=== PATIENT | female | born 1945 | race Caucasian/White ===

== ENCOUNTER 2020-06-24 01:03 | Inpatient (IN) | payer SELFPAY ==
[~2020-06-24] VITALS: Ht 144.8 cm; Wt 36.7 kg
[2020-06-24 01:21] VITALS: Ht 144.8 cm; Wt 36.7 kg
--- NOTE | 2020-06-24 01:37 | NUR ---
PT CAME TO ED FOR C/O EPIGASTRIC PAIN 08/23 X 2 DAYS. PT STATES IT WAS A SUDDEN ONSET AND DOES NOT RADIATE. PT IS AAOX4, NAD NOTED. PT IN GOWN AND ON CM, VSS. MD KING PERFORMED MSE AND DEISY EMT AT [facility] EFOR EKG AT THIS TIME. PT STATES SHE HAS HX OF DM AND HTN. LUNGS CLEAR BILAT, E/U BREATHING. WILL CONTINUE TO MONITOR PT AT THIS TIME.
--- NOTE | 2020-06-24 01:58 | NUR ---
PT BEING TAKEN VIA GURNEY TO CT SCAN AT THIS TIME.
[2020-06-24 02:26] LABS: CALCIUM 8.4 mg/dL (8.5-10.1); CARBON DIOXIDE 28.2 mmol/L (21-32); CHLORIDE SERUM 102 mmol/L (98-107); CREATININE SERUM 0.7 mg/dL (0.6-1.0); GLUCOSE SERUM 119 mg/dL (74-106); POTASSIUM SERUM 3.8 mmol/L (3.5-5.1); SODIUM SERUM 138 mmol/L (136-145)
[2020-06-24 02:31] LABS: ALBUMIN 3.4 g/dL (3.4-5.0); ALKALINE PHOSPHATASE 71 U/L (46-116); ALT/SGPT 11 U/L (14-59); AST/SGOT 20 U/L (15-37); BILIRUBIN TOTAL 0.44 mg/dL (0.20-1.00); LIPASE 336 IU/L (73-393); TOTAL PROTEIN, SERUM 6.8 g/dL (6.4-8.2)
[2020-06-24 02:37] LABS: BASOPHIL % 0.3 % (0-2); PLATELET COUNT 166 x10^3mcL (130-400)
--- NOTE | 2020-06-24 02:47 | NUR ---
PT AMBULATED TO THE RESTROOM WITH STEADY GAIT. ABLE TO OBTAIN PT FROM URINE AT THIS TIME.
[2020-06-24 02:49] LABS: RED CELL DISTRIBUTION WIDTH 14.9 % (11.5-14.5)
[2020-06-24] MEDS ORDERED: V10 PO (03:33)
--- NOTE | 2020-06-24 03:42 | NUR ---
MD KING DISCUSSING POC AND RESULTS WITH PT.
--- NOTE | 2020-06-24 03:57 | NUR ---
PT REQUESTING FOR ME TO CALL SISTER AND LET HER KNOW SHE WILL BE ADMITTED TO HOSPITAL SO SHE ISNT WAITING ANYMORE. SISTER MANJIT ANSWERED AND APPRECIATED THE CALL. HER NUMBER IS ON FILE AND CALL HER WITH UPDATES OR QUESTIONS AT [facility].
[2020-06-24 04:58] LABS: CHOLESTEROL/HDL RATIO 2.4
--- NOTE | 2020-06-24 05:16 | NUR ---
PT IN BED RESTING WITH EYES CLOSED. PT IS AAOX4, NAD NOTED. PT ON FULL CM, VSS. WAITING ROOM ASSIGNEMNT. WILL CONTINUE TO MONITOR PT AT HTIS TIME.
[2020-06-24 05:38] LABS: UA SPECIFIC GRAVITY 1.015 (1.005-1.035); microscopic required? YES; urine erythrocyte 2+ (NEGATIVE)
[2020-06-24 05:48] LABS: AMPHETAMINE QUAL UR NONE DETECTED (See below)
--- NOTE | 2020-06-24 06:07 | NUR ---
PT IN BED RESTING WITH EYES CLOSED, EASILY AROUSABLE. PT ON CM, VSS. STILL PENDING ROOM ASSIGNEMNT. WILL CONTINUE TO MONITOR PT.
--- NOTE | 2020-06-24 06:36 | NUR ---
MEDICATED PER PROTOCOL, SEE EMAR FOR DETAILS.
--- NOTE | 2020-06-24 07:08 | NUR ---
REPORT PROVIDED BY PINA COON FOR CONTINUED CARE OF PATIENT .
--- NOTE | 2020-06-24 07:09 | NUR ---
REPORT GIVEN TO FARHAD HELLER, SHE WILL ASSUME CARE OF PT AT THIS TIME.
--- NOTE | 2020-06-24 07:49 | NUR ---
GAVE REPORT TO AGUSTIN HELLER FOR FURTHER CARE OF PT.
[2020-06-24 11:22] VITALS: BP 120/60
[2020-06-24 11:49] VITALS: BP 120/60
--- NOTE | 2020-06-24 12:49 | NUR ---
Discount pharmacy card and list to low cost medical clinics given to patient.
[2020-06-24 17:23] VITALS: BP 136/68
--- NOTE | 2020-06-24 18:11 | NUR ---
Pt currently in bed alert and oriented times 4. Pt arrived from ER this morning at 0759 via gurney-Alert and oriented times 4 Citizen [place] speaking. Pt hard US done this afternoon. Pt was picked up for surgery at 1315 in stable condition. Procedure was explained to pt by Dr Nunez at bed side using retail field merchandiser. MD allows pt to verbalized questions and he answered all pt questions. Consent for procedure signed by pt. Pt returned from surgery around 1600. Alert and oriented times 4. Pt returned form surgery with 5 small incision covered with dermabond in abdominal area. No bleeding or drainage noted at the incision sites. Pt walked to the restroom at 1815 and urinate after she returned from surgery. 1. [place] given once this evening for abdominal pain. Pt tolerated clear liquid well with no c/o of N/V. Bed in low position and call light within reach. IVF infusing as ordered. Pt aware to call nurse for assistance. Will continue to monitor and endorse care to oncoming shift RN.
--- NOTE | 2020-06-24 19:45 | NUR ---
RECEIVED PATIEN TIN BED AWKAE, ALERT AND ORIENTED WITH NO C/O POST OPERATIVE PAIN AT THIS TIME, PATIENT MEDICATED EARLIER BY AM SHIFT FOR PAIN. MED SURG PATIENT DENIES CHEST DISCOMFORT. SURGICAL INCISION X5 TO ABDOMEN COVERED WITH DERMABOND CDI. IV TO LFA INTACT AND INFUSING WELL WITH NO REDNESS AND NO SWELLING NOTED TO SITE. WILL CONTINUE TO MONITOR. CALL LIGHT WITHIN REACH.
[2020-06-24 21:15] VITALS: BP 114/54
--- NOTE | 2020-06-24 23:55 | NUR ---
ASSISTED TO BATHROOM AND VOIDED. NO SIGN OF PAIN AND DISCOMFORT NOTED. WILL CONTINUE TO MONITOR.
[2020-06-25 04:38] VITALS: BP 111/64
--- NOTE | 2020-06-25 05:07 | NUR ---
SLEPT FAORLY, DENIES POST OPERATIVE PAIN THROUGHOUT THE SHIFT. AMBULATED TO RESTROOM AND VOIDED. NO BLEEDING NOTED TO SURGICAL SITE. ALL NEEDS ATTENDED.
[2020-06-25 07:10] LABS: ALKALINE PHOSPHATASE 51 U/L (46-116); ALT/SGPT 52 U/L (14-59); AST/SGOT 90 U/L (15-37); BILIRUBIN TOTAL 0.6 mg/dL (0.20-1.00); CALCIUM 8.4 mg/dL (8.5-10.1); CARBON DIOXIDE 30.9 mmol/L (21-32); CHLORIDE SERUM 108 mmol/L (98-107); CREATININE SERUM 0.6 mg/dL (0.6-1.0); GLUCOSE SERUM 94 mg/dL (74-106); POTASSIUM SERUM 4.6 mmol/L (3.5-5.1); SODIUM SERUM 142 mmol/L (136-145)
[2020-06-25 07:11] LABS: ALBUMIN 2.6 g/dL (3.4-5.0); TOTAL PROTEIN, SERUM 5.7 g/dL (6.4-8.2)
[2020-06-25 07:13] LABS: BASOPHIL % 0.3 % (0-2); PLATELET COUNT 137 x10^3mcL (130-400)
--- NOTE | 2020-06-25 07:30 | NUR ---
RECEIVED PATIENT IN BED, AWAKE ALERT AND ORIENTED, AZERI SPEAKING. PATIENT IS A MED/SURG PATIENT, DENIES ANY CHEST PAIN. RESP EVEN AND UNLABORED, ON ROOM AIR LUNGS CLEAR. NO SOB OR COUGH NOTED. SAT IS 95%. ABD SOFT BOWEL SOUNDS ARE HYPO ACTIVE, PATIENT VOIDING WELL, BUT HAS NOT PASSED GAS. TOLERATING CLEAR LIQUIDS WELL, NO N/V AT THIS TIME. ABD SOFT AND FLAT, DERMA PASTRANA NOTED ON 5 INCISION SITES DRYING ROOM SUPERVISOR. DENIES ANY PAIN AT THIS TIME. VOIDING WELL. AMBULATES WITH ASSIST WITH SLOW GAIT. PATIENT INSTRUCTED TO USE CALL LIGHT FOR ASSIST AND PLACED WITHIN REACH. BED IS LOCKED AND IN LOW POSITION. SIDERAILS UP X 2 FOR SAFETY. AZERI SPEAKING SYSTEMS ACCOUNTANT AT BEDSIDE TO TRANSLATE FOR PATIENT AT THIS ITME. WILL CONTINUE TO MONITOR.
[2020-06-25 08:00] VITALS: BP 117/52
--- NOTE | 2020-06-25 09:35 | NUR ---
PATIENT SITTING UP IN BED, C/O ABD PAIN AFTER AMBULATING TO THE BATHROOM, 7/10 ON THE PAIN SCALE WILL MEDICATE WITH NORCO PO ORDERED AND MONITOR FOR EFFECT.
[2020-06-25 11:51] VITALS: BP 133/55
--- NOTE | 2020-06-25 12:57 | NUR ---
DR FLOREZ WAS INTO SEE PATIENT. PATIENT SITTING UP IN BED EATING FULL LIQUID DIET. NO FURTHER C/O PAIN OR DISCOMFORT. NO ACUTE DISTRESS NOTED. CALL LIGHT WITHIN REACH.
--- NOTE | 2020-06-25 15:53 | NUR ---
PATIENT TOLERATING FULL LIQUID WELL. IVF HEPLOCKED AND DIET ADVANCED TO MECH SOFT FOR DINNER. WILL CONTINUE TO MONITOR.
[2020-06-25 16:27] VITALS: BP 138/63
--- NOTE | 2020-06-25 17:21 | NUR ---
PATIENT'S PLAN OF CARE WAS DISCUSSED AND REVIEWED WITH CARPET MEASURER:NEMO MCGREGOR. I HAVE REVIEWED THE DATA COLLECTION BY CARPET MEASURER (NAME):NEMO MCGREGOR. ENTERED ON (DATE/TIME):06/25/20. I CONCUR WITH THE DATA AND ANY EXCEPTIONS OR COMMENTS ARE LISTED BELOW:
--- NOTE | 2020-06-25 17:46 | NUR ---
IV SITE LEAKING, NEW IV STARTED ON RIGHT F/A 20G. IVF HEPLOCKED ORDERED. AMBULATES TO THE BATHROOM. NO ACUTE DISTRESS NOTED.
--- NOTE | 2020-06-25 18:21 | NUR ---
PATIENT SITTING UP IN BED, TOLERATING [facility] SOFT DIET WELL. C/O ABD PAIN 8/10 ON THE PAIN SCALE. MEDICATED WITH NORCO PO AT THIS TIME
--- NOTE | 2020-06-25 19:23 | NUR ---
PT RECEIVED FROM AM NURSE. PT A/O X4, [place]HANA[place] SPEAKING, ABLE TO MAKE NEEDS KNOWN. MED-SURG, DENIES ANY CP/PRESSURE. PULSES PALPABLE, NO EDEMA PRESENT. BREATHING IS EVEN AND UNLABORED ON RA, NO RESP DISTRESS NOTED. ABD SOFT AND FLAT, BOWEL TONES HYPOACTIVE X4 QUAD, DENIES ANY N/V. 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 PT DENIES PASSING GAS OR HAVING BM POST-OP. VOIDS FREELY, BRP. GENERALIZED WEAKNSES, AMBULATORY W/ MINIMAL ASSIST. PT DENIES HAVING ANY PAIN AT THIS TIME. SL TO RFA, PATENT AND INTACT, SITE WNL. NO ACUTE DISTRESS NOTED. BED IN LOWEST SETTING, SIDE RAILS UP X2, CALL LIGHT WITHIN REACH. WILL CONT TO MONITOR.
[2020-06-25 20:22] VITALS: BP 113/61
--- NOTE | 2020-06-26 01:20 | NUR ---
PT RESTING IN BED WITH EYES CLOSED, BUT IS EASILY AROUSABLE. BREATHING IS EVEN AND UNLABORED, NO RESP DISTRESS NOTED. PT DENIES HAVING PAIN AT THIS TIME. IV INTACT. NO ACUTE DISTRESS NOTED. CALL LIGHT WITHIN REACH. WILL CONT TO MONITOR.
--- NOTE | 2020-06-26 05:28 | NUR ---
PT SLEPT WELL THROUGHOUT THE EVENING. BREATHING IS EVEN AND UNLABORED, NO RESP DISTRESS NOTED. PT C/O 05/23 ABD PAIN, PRN NORCO GIVEN PER EMAR. PT DENIES PASSING GAS OR HAVING BM POST-OP. IV TO RFA INTACT. NO ACUTE CHANGES ENCOUNTERED DURING SHIFT. ALL NEEDS MET AND ANTICIPATED. CALL LIGHT WITHIN REACH. WILL ENDORSE CARE TO AM NURSE.
[2020-06-26 06:01] VITALS: BP 135/59
--- NOTE | 2020-06-26 07:30 | NUR ---
RECEIVED PT LYING IN BED A/A, ORIENTED X4. BREATHING EQUAL/UNLABORED ON RA. NO ACUTE PAIN/DISTRESS. IV SITE WNL. BED IN LOW POSITION, CALL LIGHT IN REACH, SAFETY PRECAUTIONS IN PLACE. WILL CONTINUE TO MONITOR
[2020-06-26 08:35] LABS: CALCIUM 8.8 mg/dL (8.5-10.1); CARBON DIOXIDE 31.8 mmol/L (21-32); CHLORIDE SERUM 103 mmol/L (98-107); CREATININE SERUM 0.8 mg/dL (0.6-1.0); GLUCOSE SERUM 104 mg/dL (74-106); POTASSIUM SERUM 3.4 mmol/L (3.5-5.1); SODIUM SERUM 140 mmol/L (136-145)
[2020-06-26 08:49] VITALS: BP 158/71
[2020-06-26 08:50] LABS: BASOPHIL % 0.8 % (0-2); PLATELET COUNT 148 x10^3mcL (130-400)
[2020-06-26 08:54] LABS: RED CELL DISTRIBUTION WIDTH 14.7 % (11.5-14.5)
[2020-06-26] MEDS ORDERED: AUGMENTIN1 TA1 PO (08:59)
[2020-06-26 10:40] VITALS: BP 158/71
--- NOTE | 2020-06-26 11:40 | NUR ---
PT LYING IN BED A/A. BREATHING EQUAL/UNLABORED ON RA. NO ACUTE CHANGES/PAIN/DISTRESS. IV SITE WNL. WAITING ON RIDE FOR PT. CALLED AND LEFT A MESSAGE WITH THE PT'S FAMILY. DISCHARGE INSTRUCTIONS, EDUCATION, NEW/CONTINUED MEDICATIONS, AND F/U DISCUSSED WITH PT. PT VERBALIZED UNDERSTANDING. ALL QUESTIONS AND CONCERNS WERE ADDRESSED. WILL CONTINUE TO MONITOR
--- NOTE | 2020-06-26 14:57 | NUR ---
PT DISCHARGED HOME. PT A/A, ORIENTED X4. BREATHING EQUAL/UNLABORED ON RA. NO ACUTE PAIN/DISTRESS. IV REMOVED WITH CATHETER INTACT, SITE WNL. BROUGHT DOWN TO LOBBY ACCOMPANIED BY BELL STAFF. ALL BELONGINGS WITH PT
== END 2020-06-26 14:57 | disposition home or self-care (01) | DRG 417 ==
LOC: ED 01:03 → MU 03:32 → DU 03:32 → MU 07:59
PROVIDERS: Emergency Medicine; Surgery; ADMIT Family Medicine; ATTEND Family Medicine
PROC: 0DNW0ZZ Release Peritoneum, Open Approach (ICD-10-PCS; 2020-06-24)
PROC: 0FT44ZZ Resection of Gallbladder, Percutaneous Endoscopic Approach (ICD-10-PCS; principal; 2020-06-24 13:30)
DX: K81.0 Acute cholecystitis (principal); E43 Unspecified severe protein-calorie malnutrition; Z68.1 Body mass index [BMI] 19.9 or less, adult; I10 Essential (primary) hypertension; E83.51 Hypocalcemia; Z79.899 Other long term (current) drug therapy
CPT/HCPCS: 94150; G0378; J1170; J2175; J2270; J2405; J2543; J3010; J3490; J7030; Q0092; Q9967